=== PATIENT | male | born 1950 | race Caucasian/White ===

== ENCOUNTER 2017-06-28 05:39 | Inpatient (IN) | payer MEDICARE, OTHER ==
[~2017-06-28] VITALS: Ht 185.4 cm; Wt 104.1 kg
[~2017-06-28 05:39] MED LIST: AMLO10TA4 PO; AMLO5TAB4 PO; APIX5TAB PO; CARV-39 PO; CLIN300C8 PO; DIGO125T PO; FENO160T PO; FURO40TA6 PO; GLIP10TA13 PO; INSU100C SQ-INSULIN; INSU100V13 SC; LISI40TA PO; PANT40TA5 PO; POTA20TA89 PO; SIMV40TA3 PO
[2017-06-28] MEDS ORDERED: NITROGLYCERIN SINGLE TAB 0.4 MG SL ONE (05:49)
[2017-06-28] MEDS ORDERED: ASPIRIN 81 MG TABLET CHEW ONE (05:49)
[2017-06-28] MEDS: NITROGLYCERIN SINGLE TAB 0.4 MG SL PRN ×2 (05:51→05:58)
[2017-06-28] MEDS ORDERED: ASPIRIN 81 MG TABLET CHEW PO ONE (06:00)
[2017-06-28] MEDS ORDERED: SODIUM CHLORIDE FLUSH 10ML SYR IVF ONE (06:00)
[2017-06-28 06:01] LABS: HEMATOCRIT 48.1 % (39.2-51.8); HEMOGLOBIN 16.1 g/dL (13.7-18.0); WHITE BLOOD COUNT 11.1 x10^3/uL (3.4-10)
[2017-06-28 06:12] LABS: BLOOD UREA NITROGEN 29 mg/dL (7-18)
[2017-06-28 06:16] LABS: IS PT STATUS REG ER OR PRE ER? YES
[2017-06-28] MEDS ORDERED: FURO40TA6 PO (07:38)
[2017-06-28 08:00] VITALS: BP 150/85
[2017-06-28] MEDS ORDERED: DOCUSATE 100 MG CAPSULE PO PRN (10:00)
[2017-06-28] MEDS ORDERED: POLYETHYLENE GLYCOL 17 GM PACKET PO PRN (10:00)
[2017-06-28] MEDS ORDERED: BISACODYL 10 MG SUPP PR PRN (10:00)
[2017-06-28] MEDS ORDERED: morphine SULFATE 10 MG/ML, 1ML IVPush PRN (10:00)
[2017-06-28] MEDS ORDERED: ACETAMINOPHEN 325 MG TABLET PO PRN (10:00)
[2017-06-28] MEDS: [UNRECOGNIZED DRUG - REMARK] MC SCH ×2 (10:33→16:49)
[2017-06-28] MEDS: INSULIN ASPART 100 UNITS/ML, PEN SQ-INSULIN SCH ×3 (11:00→21:07)
[2017-06-28 11:21] LABS: IS PT STATUS REG ER OR PRE ER? NO
[2017-06-28] MEDS ORDERED: REGADENOSON 0.4 MG/5 ML SYRINGE ONE (11:58)
[2017-06-28 13:42] VITALS: BP 147/80
[2017-06-28] MEDS: SODIUM CHLORIDE 0.9% 1,000 ML IV SCH (13:43)
[2017-06-28 16:23] LABS: IS PT STATUS REG ER OR PRE ER? NO
[2017-06-28 19:56] VITALS: BP 152/77
[2017-06-28 20:58] VITALS: BP 149/84
[2017-06-28] MEDS ORDERED: SIMVASTATIN 40 MG TABLET PO SCH (21:00)
[2017-06-28] MEDS ORDERED: FUROSEMIDE 40 MG TABLET PO SCH (21:00)
[2017-06-28] MEDS: POTASSIUM CHLORIDE 20 MEQ TAB.ER.PRT PO SCH (21:08)
[2017-06-28] MEDS: APIXABAN 5 MG TABLET PO SCH (21:10)
[2017-06-28] MEDS: CARVEDILOL 25 MG TABLET PO SCH (21:10)
[2017-06-28] MEDS: INSULIN DETEMIR 100 UNITS/ML, PEN SQ-INSULIN SCH (21:14)
[2017-06-29] MEDS: SODIUM CHLORIDE 0.9% 1,000 ML IV SCH ×2 (00:42→09:02)
[2017-06-29 02:09] VITALS: BP 148/87
[2017-06-29] MEDS: [UNRECOGNIZED DRUG - REMARK] MC SCH ×2 (02:19→09:00)
[2017-06-29 04:29] LABS: HEMATOCRIT 43.7 % (39.2-51.8); HEMOGLOBIN 14.7 g/dL (13.7-18.0); WHITE BLOOD COUNT 9.8 x10^3/uL (3.4-10)
[2017-06-29 04:42] LABS: ASPARTATE AMINO TRANSFERASE 18 U/L (15-37); BLOOD UREA NITROGEN 24 mg/dL (7-18)
[2017-06-29] MEDS: INSULIN ASPART 100 UNITS/ML, PEN SQ-INSULIN SCH ×2 (07:00→11:37)
[2017-06-29 08:04] VITALS: BP 148/78
[2017-06-29] MEDS: INSULIN DETEMIR 100 UNITS/ML, PEN SQ-INSULIN SCH (08:48)
[2017-06-29] MEDS: POTASSIUM CHLORIDE 20 MEQ TAB.ER.PRT PO SCH (08:59)
[2017-06-29] MEDS: CARVEDILOL 25 MG TABLET PO SCH (08:59)
[2017-06-29] MEDS: APIXABAN 5 MG TABLET PO SCH (08:59)
[2017-06-29] MEDS ORDERED: FENOFIBRATE 145 MG TABLET PO SCH (09:00)
[2017-06-29] MEDS ORDERED: DIGOXIN 0.125 MG TABLET PO SCH (09:00)
[2017-06-29] MEDS ORDERED: AMLODIPINE 5 MG TABLET PO SCH (09:00)
[2017-06-29 11:35] VITALS: BP 144/81
== END 2017-06-29 15:20 | disposition home or self-care (01) | DRG 291 ==
LOC: ED 06:22 → EDIP 06:59 → 5SO 07:53 → DCLOUNGE 06-29 15:15
PROVIDERS: ADMIT Hospitalist; ATTEND Hospitalist
DX: I13.0 Hypertensive heart and chronic kidney disease with heart failure and stage 1 through stage 4 chronic kidney disease, or unspecified chronic kidney disease (principal); N17.0 Acute kidney failure with tubular necrosis; D68.69 Other thrombophilia; E11.22 Type 2 diabetes mellitus with diabetic chronic kidney disease; E11.51 Type 2 diabetes mellitus with diabetic peripheral angiopathy without gangrene; L03.116 Cellulitis of left lower limb; K22.4 Dyskinesia of esophagus; I50.9 Heart failure, unspecified; I45.4 Nonspecific intraventricular block; I48.91 Unspecified atrial fibrillation; N18.9 Chronic kidney disease, unspecified; Z87.891 Personal history of nicotine dependence; Z89.519 Acquired absence of unspecified leg below knee; Z95.810 Presence of automatic (implantable) cardiac defibrillator; Z88.0 Allergy status to penicillin; Z88.8 Allergy status to other drugs, medicaments and biological substances
CPT/HCPCS: 36415; 71010; 76770; 78452; 80048; 80053; 80061; 80162; 82040; 82962; 83735; 84100; 84443; 84484; 85025; 85379; 93005; 93017; 99285; J1815; J2785; A9502; C9898; J7030

== ENCOUNTER 2018-09-14 13:43 | Inpatient (IN) | payer MEDICARE, OTHER ==
[~2018-09-14] VITALS: Ht 185.4 cm; Wt 117.2 kg
[2018-09-14 14:41] LABS: MEAN CORPUSCULAR HEMOGLOBIN 29.6 pg (27.5-34.5); MEAN CORPUSCULAR HGB CONC 32.7 g/dL (33.2-36.2); MEAN CORPUSCULAR VOLUME 90.3 fL (81-97); MEAN PLATELET VOLUME 9.4 fL (7.4-10.4); PLATELET COUNT 503 x10^3/uL (130-400); RED BLOOD COUNT 5.03 x10^6/uL (4.38-5.82)
[2018-09-14 14:47] LABS: ALBUMIN 2.8 g/dL (3.4-5.0); ANION GAP 11 mmol/L (5-15); CALCIUM 9.4 mg/dL (8.5-10.1); CHLORIDE 105 mmol/L (98-107); CREATININE 1.73 mg/dL (0.7-1.3)
--- NOTE | 2018-09-14 14:59 | NUR ---
FROM LOBBY TO ROOM AT THIS TIME
[2018-09-14 15:13] LABS: ACETONE, SERUM Small (20mg/dL) mg/dL (Negative); MD SCAN
[2018-09-14 15:14] LABS: BASOPHILS # (AUTO) 0.02 x10^3/uL (0-0.1); BASOPHILS % (AUTO) 0 % (0-1); EOSINOPHILS % (AUTO) 1 % (1-7); LYMPHOCYTES % (AUTO) 9 % (22-44); MONOCYTES # (AUTO) 0.58 x10^3/uL (0.2-0.8); MONOCYTES % (AUTO) 3 % (2-9); NEUTROPHILS # (AUTO) 19.19 x10^3/uL (1.8-6.8); NEUTROPHILS % (AUTO) 88 % (42-75)
--- NOTE | 2018-09-14 15:25 | NUR ---
APPLE JUICE PROVIDED TO PT (GUSTAVO WILSON). PT SPEAKING IN SLOW MEASURED SENTENCES. CARDIAC & VS MONITORING EQUIPMENT APPLIED, SIDE RAILS UP X2, CALL LIGHT W/IN REACH, URINAL PROVIDED.
--- NOTE | 2018-09-14 15:59 | NUR ---
PT UNABLE TO RECALL HIS MEDICINES; MED LIST OBTAINED FROM [facility] ([facility]LET RETURNED TO PT). PT TO CT PER [facility].
--- NOTE | 2018-09-14 16:09 | NUR ---
PT REPORT TO BREAK RN: JEROME
--- NOTE | 2018-09-14 16:29 | NUR ---
TASK RN: PT RETURNED FROM CT. NAD NOTED. RN REQUESTED UA SAMPLE, PT STATES "I HAVEN'T GONE SINCE YESTERDAY, SO I PROBABLY WONT BE ABLE TO GO". PT REFUSING ATTEMPT. DENIES URGE TO VOID; DENIES HX OF CKF. BP/SPO2/ECG MONITORING IN PLACE. PACED RHYTHM ON MONITOR, HR 70'S.
--- NOTE | 2018-09-14 16:30 | NUR ---
TASK RN: ERP MADE AWARE OF LABS. AWAITING ORDERS FOR BC AND/OR ABX
--- NOTE | 2018-09-14 17:01 | NUR ---
[facility] in [facility] - 09/14/18 at 1701 by KELLIE PT REPORT FROM HUMBERTO RODRIGUEZ; PT CARE ASSUMED.
--- NOTE | 2018-09-14 17:02 | NUR ---
PT REPORT FROM HUMBERTO RODRIGUEZ; PT CARE ASSUMED.
--- NOTE | 2018-09-14 17:24 | NUR ---
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 INFORMED PT OF CATHETER ORDER. PT REQUESTED WATER & WILL ATTEMPT VOIDING.
--- NOTE | 2018-09-14 17:54 | NUR ---
STRAIGHT CATH URINE SPECIMEN OBTAINED; PT TOLERATED PROCEDURE. SPECIMEN WILL BE WALKED TO LAB.
[2018-09-14 18:08] LABS: MICROSCOPIC INDICATED
[2018-09-14 18:34] LABS: CULTURE INDICATED? NO
--- NOTE | 2018-09-14 18:34 | NUR ---
WATER BOTTLES (2) PROVIDED TO PT PER REQUEST. PT ABLE TO SWALLOW W/OUT COUGHING. RESTING QUIETLY ON BED, MONITORING CONTINUES, SIDE RAILS UP X2, CALL LIGHT W/IN REACH. PT SPEAKING SLOWLY, A&OX4, RESP EVEN & UNLABORED, SKIN WNL.
--- NOTE | 2018-09-14 19:25 | NUR ---
PT REPORT TO HUMBERTO MARTINEZ FOR ROOM [id number]
[2018-09-14 20:06] VITALS: BP 124/78
[2018-09-14] MEDS ORDERED: ONDANSETRON ODT 4 MG PO PRN (21:30)
[2018-09-14] MEDS ORDERED: DEXTROSE 4 GM TAB.CHEW PO PRN (21:30)
[2018-09-14] MEDS ORDERED: BISACODYL 10 MG SUPP PR PRN (21:30)
[2018-09-14] MEDS ORDERED: DEXTROSE 50%, 50ML SYRINGE IVPush PRN (21:30)
[2018-09-14] MEDS ORDERED: morphine SULFATE 10 MG/ML, 1ML IVPush PRN (21:30)
[2018-09-14] MEDS ORDERED: PROMETHAZINE 25 MG/ML, 1ML IM PRN (21:30)
[2018-09-14] MEDS ORDERED: ONDANSETRON 2MG/ML, 2ML IVPush PRN (21:30)
[2018-09-14] MEDS ORDERED: POLYETHYLENE GLYCOL 17 GM PACKET PO PRN (21:30)
[2018-09-14] MEDS ORDERED: DOCUSATE 100 MG CAPSULE PO PRN (21:30)
[2018-09-14] MEDS ORDERED: GLUCAGON 1 MG IM PRN (21:30)
[2018-09-14] MEDS ORDERED: hydrALAzine 20 MG/ML, 1ML IVPush PRN (21:30)
[2018-09-14] MEDS ORDERED: ACETAMINOPHEN 325 MG TABLET PO PRN (21:30)
[2018-09-14] MEDS ORDERED: LABETALOL 5MG/ML, 20ML IVPush PRN (21:30)
[2018-09-14] MEDS: INSULIN LISPRO 100 UNITS/ML, PEN SQ-INSULIN SCH (21:30)
[2018-09-14 22:06] LABS: FREE T4 (FREE THYROXINE) 1.52 ng/dL (0.76-1.46); THYROID STIMULATING HORMONE 3.14 mIU/L (0.358-3.740)
[2018-09-14 22:16] LABS: ALBUMIN 2.5 g/dL (3.4-5.0); BILIRUBIN, DIRECT 0.3 mg/dL (0.1-0.2)
[2018-09-14 22:17] LABS: BILIRUBIN,INDIRECT 0.5 mg/dL (0.0-2.0); BILIRUBIN,TOTAL 0.8 mg/dL (0.2-1.0); TOTAL PROTEIN 6.7 g/dL (6.4-8.2)
[2018-09-14] MEDS: CARVEDILOL 25 MG TABLET PO SCH (22:31)
[2018-09-14] MEDS: APIXABAN 5 MG TABLET PO SCH (22:32)
[2018-09-14] MEDS: SODIUM CHLORIDE FLUSH 10ML SYR IVF SCH (22:32)
[2018-09-14] MEDS: SIMVASTATIN 40 MG TABLET PO SCH (22:32)
[2018-09-14 22:37] LABS: HEMOGLOBIN A1C 7.6 % (4.2-6.3)
[2018-09-15 02:37] VITALS: BP 131/78
[2018-09-15 05:23] LABS: BASOPHILS # (AUTO) 0.16 x10^3/uL (0-0.1); BASOPHILS % (AUTO) 1 % (0-1); EOSINOPHILS # (AUTO) 0.19 x10^3/uL (0-0.4); EOSINOPHILS % (AUTO) 1 % (1-7); LYMPHOCYTES # (AUTO) 2.39 x10^3/uL (1-3.4); LYMPHOCYTES % (AUTO) 17 % (22-44); MD NO; MEAN CORPUSCULAR HEMOGLOBIN 29.9 pg (27.5-34.5); MEAN CORPUSCULAR HGB CONC 33.5 g/dL (33.2-36.2); MEAN CORPUSCULAR VOLUME 89.3 fL (81-97); MEAN PLATELET VOLUME 9.3 fL (7.4-10.4); MONOCYTES # (AUTO) 1.08 x10^3/uL (0.2-0.8); MONOCYTES % (AUTO) 8 % (2-9); NEUTROPHILS # (AUTO) 10.37 x10^3/uL (1.8-6.8); NEUTROPHILS % (AUTO) 73 % (42-75); PLATELET COUNT 348 x10^3/uL (130-400); RED BLOOD COUNT 4.41 x10^6/uL (4.38-5.82); RED CELL DISTRIBUTION WIDTH 14.8 % (9.4-14.8)
[2018-09-15 05:31] LABS: ALBUMIN 2.5 g/dL (3.4-5.0); ANION GAP 11 mmol/L (5-15); CALCIUM 8.7 mg/dL (8.5-10.1); CHLORIDE 101 mmol/L (98-107)
[2018-09-15 05:34] LABS: ALANINE AMINOTRANSFERASE 35 U/L (12-78); ALKALINE PHOSPHATASE 101 U/L (45-117); BILIRUBIN,TOTAL 0.8 mg/dL (0.2-1.0); CHOL/HDL RATIO 3.9; CHOLESTEROL, TOTAL 113 mg/dL (140-239); CREATININE 2.18 mg/dL (0.7-1.3); HDL CHOL % 26 % (26-37); HDL CHOLESTEROL (DIRECT) 29 mg/dL (40-60); LDL CHOLESTEROL,CALCULATED 47 mg/dL (54-169); LDL/HDL RATIO 1.6 (0.5-3.0); TRIGLYCERIDES 187 mg/dL (50-200); VLDL CHOLESTEROL 37 mg/dL (0-25)
[2018-09-15 06:31] VITALS: BP 111/77
[2018-09-15 06:33] VITALS: BP 129/71
[2018-09-15] MEDS: CARVEDILOL 25 MG TABLET PO SCH ×2 (08:37→21:21)
[2018-09-15] MEDS: DIGOXIN 0.125 MG TABLET PO SCH (08:37)
[2018-09-15] MEDS: FUROSEMIDE 40 MG TABLET PO SCH (08:37)
[2018-09-15] MEDS: APIXABAN 5 MG TABLET PO SCH ×2 (08:37→21:21)
[2018-09-15] MEDS: LISINOPRIL 20 MG TABLET PO SCH (08:38)
[2018-09-15] MEDS: AMLODIPINE 5 MG TABLET PO SCH (08:38)
[2018-09-15] MEDS: FENOFIBRATE 54 MG TABLET PO SCH (08:38)
[2018-09-15] MEDS: INSULIN LISPRO 100 UNITS/ML, PEN SQ-INSULIN SCH ×4 (08:38→21:22)
[2018-09-15] MEDS: SODIUM CHLORIDE FLUSH 10ML SYR IVF SCH ×2 (08:39→21:23)
[2018-09-15] MEDS ORDERED: SODIUM CHLORIDE 0.9% 1,000 ML IV SCH (09:00)
[2018-09-15 13:29] VITALS: BP 121/78
[2018-09-15 18:27] VITALS: BP 99/54
[2018-09-15] MEDS: SIMVASTATIN 40 MG TABLET PO SCH (21:21)
[2018-09-16 01:00] VITALS: BP 115/70
[2018-09-16 05:05] LABS: ALANINE AMINOTRANSFERASE 32 U/L (12-78); ALBUMIN 2.4 g/dL (3.4-5.0); ANION GAP 6 mmol/L (5-15); CALCIUM 8.1 mg/dL (8.5-10.1); CHLORIDE 106 mmol/L (98-107)
[2018-09-16 05:08] LABS: ALKALINE PHOSPHATASE 93 U/L (45-117); BILIRUBIN,TOTAL 0.6 mg/dL (0.2-1.0); TOTAL PROTEIN 6.6 g/dL (6.4-8.2)
[2018-09-16 05:10] LABS: BASOPHILS # (AUTO) 0.05 x10^3/uL (0-0.1); BASOPHILS % (AUTO) 1 % (0-1); EOSINOPHILS % (AUTO) 3 % (1-7); LYMPHOCYTES # (AUTO) 1.82 x10^3/uL (1-3.4); LYMPHOCYTES % (AUTO) 19 % (22-44); MD NO; MEAN CORPUSCULAR HEMOGLOBIN 30.7 pg (27.5-34.5); MEAN CORPUSCULAR VOLUME 90.4 fL (81-97); MEAN PLATELET VOLUME 9.8 fL (7.4-10.4); MONOCYTES # (AUTO) 0.82 x10^3/uL (0.2-0.8); MONOCYTES % (AUTO) 9 % (2-9); NEUTROPHILS # (AUTO) 6.62 x10^3/uL (1.8-6.8); NEUTROPHILS % (AUTO) 69 % (42-75); PLATELET COUNT 274 x10^3/uL (130-400); RED CELL DISTRIBUTION WIDTH 14.9 % (9.4-14.8)
[2018-09-16 07:06] VITALS: BP 134/84
[2018-09-16] MEDS: INSULIN LISPRO 100 UNITS/ML, PEN SQ-INSULIN SCH ×4 (07:24→21:42)
[2018-09-16] MEDS: SODIUM CHLORIDE FLUSH 10ML SYR IVF SCH ×2 (09:00→21:00)
[2018-09-16] MEDS: LISINOPRIL 20 MG TABLET PO SCH (09:00)
[2018-09-16] MEDS: CARVEDILOL 25 MG TABLET PO SCH ×2 (09:00→21:25)
[2018-09-16] MEDS: DIGOXIN 0.125 MG TABLET PO SCH (09:00)
[2018-09-16] MEDS: APIXABAN 5 MG TABLET PO SCH (09:00)
[2018-09-16] MEDS: FUROSEMIDE 40 MG TABLET PO SCH (09:00)
[2018-09-16] MEDS: FENOFIBRATE 54 MG TABLET PO SCH (09:00)
[2018-09-16] MEDS: AMLODIPINE 5 MG TABLET PO SCH (09:00)
[2018-09-16 15:23] LABS: ALBUMIN 2.6 g/dL (3.4-5.0); ANION GAP 6 mmol/L (5-15); CALCIUM 8.3 mg/dL (8.5-10.1); CHLORIDE 107 mmol/L (98-107)
[2018-09-16 15:35] VITALS: BP 148/83
[2018-09-16 15:53] LABS: ALANINE AMINOTRANSFERASE 31 U/L (12-78); ALKALINE PHOSPHATASE 92 U/L (45-117); BILIRUBIN,TOTAL 0.7 mg/dL (0.2-1.0); TOTAL PROTEIN 6.7 g/dL (6.4-8.2)
[2018-09-16 19:03] VITALS: BP 134/78
[2018-09-16 21:23] VITALS: BP 178/98
[2018-09-16] MEDS: SIMVASTATIN 40 MG TABLET PO SCH (21:25)
[2018-09-17 00:30] VITALS: BP 155/65
[2018-09-17] MEDS: TEMAZEPAM 15 MG CAPSULE PO PRN ×2 (00:30→20:51)
[2018-09-17 05:26] LABS: BASOPHILS # (AUTO) 0.05 x10^3/uL (0-0.1); BASOPHILS % (AUTO) 1 % (0-1); EOSINOPHILS # (AUTO) 0.27 x10^3/uL (0-0.4); EOSINOPHILS % (AUTO) 3 % (1-7); LYMPHOCYTES # (AUTO) 1.68 x10^3/uL (1-3.4); LYMPHOCYTES % (AUTO) 17 % (22-44); MD NO; MEAN CORPUSCULAR HEMOGLOBIN 30.4 pg (27.5-34.5); MEAN CORPUSCULAR HGB CONC 33.8 g/dL (33.2-36.2); MEAN CORPUSCULAR VOLUME 90.2 fL (81-97); MEAN PLATELET VOLUME 9.3 fL (7.4-10.4); MONOCYTES # (AUTO) 0.75 x10^3/uL (0.2-0.8); MONOCYTES % (AUTO) 8 % (2-9); NEUTROPHILS # (AUTO) 7.15 x10^3/uL (1.8-6.8); NEUTROPHILS % (AUTO) 72 % (42-75); PLATELET COUNT 270 x10^3/uL (130-400); RED BLOOD COUNT 4.18 x10^6/uL (4.38-5.82); RED CELL DISTRIBUTION WIDTH 14.4 % (9.4-14.8)
[2018-09-17 05:32] LABS: ALBUMIN 2.4 g/dL (3.4-5.0); ANION GAP 5 mmol/L (5-15); CALCIUM 8.6 mg/dL (8.5-10.1); CHLORIDE 109 mmol/L (98-107)
[2018-09-17 05:36] LABS: ALANINE AMINOTRANSFERASE 26 U/L (12-78); ALKALINE PHOSPHATASE 85 U/L (45-117); BILIRUBIN,TOTAL 0.7 mg/dL (0.2-1.0); CREATININE 1.42 mg/dL (0.7-1.3); TOTAL PROTEIN 6.4 g/dL (6.4-8.2)
[2018-09-17 06:24] VITALS: BP 152/89
[2018-09-17] MEDS ORDERED: POTASSIUM CHLORIDE 20 MEQ TAB.ER.PRT PO ONE (07:30)
[2018-09-17] MEDS: INSULIN LISPRO 100 UNITS/ML, PEN SQ-INSULIN SCH ×4 (07:46→20:51)
[2018-09-17] MEDS: AMLODIPINE 5 MG TABLET PO SCH (09:32)
[2018-09-17] MEDS: FUROSEMIDE 40 MG TABLET PO SCH (09:32)
[2018-09-17] MEDS: FENOFIBRATE 54 MG TABLET PO SCH (09:32)
[2018-09-17] MEDS: DIGOXIN 0.125 MG TABLET PO SCH (09:33)
[2018-09-17] MEDS: CARVEDILOL 25 MG TABLET PO SCH ×2 (09:33→20:50)
[2018-09-17] MEDS: SODIUM CHLORIDE FLUSH 10ML SYR IVF SCH ×2 (09:34→21:00)
[2018-09-17] MEDS: LISINOPRIL 20 MG TABLET PO SCH (09:34)
[2018-09-17 12:46] VITALS: BP 133/83
[2018-09-17 19:05] VITALS: BP 106/63
[2018-09-17 20:49] VITALS: BP 129/73
[2018-09-17] MEDS: SIMVASTATIN 40 MG TABLET PO SCH (20:51)
[2018-09-18 00:18] VITALS: BP 122/75
[2018-09-18 05:43] LABS: ALANINE AMINOTRANSFERASE 25 U/L (12-78); ALBUMIN 2.5 g/dL (3.4-5.0); ANION GAP 6 mmol/L (5-15); CALCIUM 8.6 mg/dL (8.5-10.1); CHLORIDE 111 mmol/L (98-107); CREATININE 1.31 mg/dL (0.7-1.3)
[2018-09-18 05:45] LABS: ALKALINE PHOSPHATASE 79 U/L (45-117); BILIRUBIN,TOTAL 0.7 mg/dL (0.2-1.0); TOTAL PROTEIN 6.4 g/dL (6.4-8.2)
[2018-09-18 06:50] VITALS: BP 145/75
[2018-09-18] MEDS: DIGOXIN 0.125 MG TABLET PO SCH (08:00)
[2018-09-18] MEDS: FUROSEMIDE 40 MG TABLET PO SCH (08:00)
[2018-09-18] MEDS: FENOFIBRATE 54 MG TABLET PO SCH (08:00)
[2018-09-18] MEDS: LISINOPRIL 20 MG TABLET PO SCH (08:00)
[2018-09-18] MEDS: AMLODIPINE 5 MG TABLET PO SCH (08:00)
[2018-09-18] MEDS: CARVEDILOL 25 MG TABLET PO SCH (08:01)
[2018-09-18] MEDS: SODIUM CHLORIDE FLUSH 10ML SYR IVF SCH (08:01)
[2018-09-18] MEDS: INSULIN LISPRO 100 UNITS/ML, PEN SQ-INSULIN SCH ×2 (08:02→11:33)
[2018-09-18 13:09] VITALS: BP 132/76
== END 2018-09-18 16:12 | DRG 71 ==
LOC: ED 18:35 → EDIP 18:51 → 4NOR 19:45
PROVIDERS: ADMIT Internal Medicine; ATTEND Internal Medicine
DX: G93.40 Encephalopathy, unspecified (principal); N17.9 Acute kidney failure, unspecified; E44.0 Moderate protein-calorie malnutrition; D68.69 Other thrombophilia; I13.0 Hypertensive heart and chronic kidney disease with heart failure and stage 1 through stage 4 chronic kidney disease, or unspecified chronic kidney disease; I42.9 Cardiomyopathy, unspecified; E11.22 Type 2 diabetes mellitus with diabetic chronic kidney disease; E11.51 Type 2 diabetes mellitus with diabetic peripheral angiopathy without gangrene; E11.649 Type 2 diabetes mellitus with hypoglycemia without coma; E11.69 Type 2 diabetes mellitus with other specified complication; F03.90 Unspecified dementia, unspecified severity, without behavioral disturbance, psychotic disturbance, mood disturbance, and anxiety; E78.5 Hyperlipidemia, unspecified; I48.91 Unspecified atrial fibrillation; K81.1 Chronic cholecystitis; N18.9 Chronic kidney disease, unspecified; I50.9 Heart failure, unspecified; Z79.4 Long term (current) use of insulin; Z89.512 Acquired absence of left leg below knee; Z95.810 Presence of automatic (implantable) cardiac defibrillator; Z68.34 Body mass index [BMI] 34.0-34.9, adult; Z79.899 Other long term (current) drug therapy; Z88.0 Allergy status to penicillin
CPT/HCPCS: 36415; 70450; 71045; 74176; 76770; 78226; 80048; 80053; 80061; 80076; 80162; 81001; 82010; 82040; 82607; 82962; 83036; 83735; 84439; 84443; 85025; 87040; 93005; 93306; 93880; 99285; G0378; A9537; C9898; J1815; J7030

== ENCOUNTER → 2018-12-22 | Outpatient (CLI) | payer MEDICARE, OTHER ==
[~2018-12-22] MED LIST changes: +REGADENOSON 0.4 MG/5 ML SYRINGE ONE
== END | disposition home or self-care (01) ==
LOC: CFH 11:54
PROVIDERS: ATTEND Internal Medicine Cardiovascular Disease
DX: I10 Essential (primary) hypertension (principal); Z95.810 Presence of automatic (implantable) cardiac defibrillator
CPT/HCPCS: 78452; 93017; A9502; J2785

== ENCOUNTER → 2019-09-04 | Outpatient (CLI) | payer MEDICARE, OTHER ==
[~2019-09-04] MED LIST changes: -REGADENOSON 0.4 MG/5 ML SYRINGE ONE
== END | disposition home or self-care (01) ==
LOC: CVU 09:18
PROVIDERS: ATTEND Internal Medicine Cardiovascular Disease
DX: I11.0 Hypertensive heart disease with heart failure (principal); I50.9 Heart failure, unspecified; I08.1 Rheumatic disorders of both mitral and tricuspid valves
CPT/HCPCS: 93306

== ENCOUNTER → 2021-01-31 | Outpatient (CLI) | payer MEDICARE, OTHER ==
[~2021-01-31] MED LIST changes: -CLIN300C8 PO; +CLIN300C9 PO; -DIGO125T PO; +DIGO125T85 PO; -LISI40TA PO; +LISI40TA9 PO; -PANT40TA5 PO; +PANT40TA6 PO; +SIMV40TA20 PO; -SIMV40TA3 PO
== END | disposition home or self-care (01) ==
LOC: WOUND 12:35
PROVIDERS: ATTEND Internal Medicine
DX: E11.622 Type 2 diabetes mellitus with other skin ulcer (principal); L97.812 Non-pressure chronic ulcer of other part of right lower leg with fat layer exposed; L89.893 Pressure ulcer of other site, stage 3; L97.822 Non-pressure chronic ulcer of other part of left lower leg with fat layer exposed; E11.42 Type 2 diabetes mellitus with diabetic polyneuropathy; T87.89 Other complications of amputation stump; L84 Corns and callosities; R60.0 Localized edema; E11.65 Type 2 diabetes mellitus with hyperglycemia; R21 Rash and other nonspecific skin eruption; E78.5 Hyperlipidemia, unspecified; E11.22 Type 2 diabetes mellitus with diabetic chronic kidney disease; I13.0 Hypertensive heart and chronic kidney disease with heart failure and stage 1 through stage 4 chronic kidney disease, or unspecified chronic kidney disease; I50.20 Unspecified systolic (congestive) heart failure; N18.9 Chronic kidney disease, unspecified; I48.0 Paroxysmal atrial fibrillation; E66.01 Morbid (severe) obesity due to excess calories; Z68.34 Body mass index [BMI] 34.0-34.9, adult; Z95.810 Presence of automatic (implantable) cardiac defibrillator; Z87.891 Personal history of nicotine dependence; Z79.01 Long term (current) use of anticoagulants; Z79.899 Other long term (current) drug therapy; Z79.4 Long term (current) use of insulin; Y83.5 Amputation of limb(s) as the cause of abnormal reaction of the patient, or of later complication, without mention of misadventure at the time of the procedure
CPT/HCPCS: 97597; G0463